=== PATIENT | male | born 2005 | race Caucasian/White ===

== ENCOUNTER 2024-10-05 22:19 | Emergency (ER) | payer OTHER ==
[2024-10-05 22:29] VITALS: BP 115/67; PULSE 81; RESP 17; TEMP 98.3; BMI 27.1
[2024-10-06] MEDS ORDERED: DIPHTH,PERTUSS(ACELL),TET 0.5 ML DISP.SYRIN IM ONE (00:01)
[2024-10-06] MEDS ORDERED: BACITRACIN ZINC 15 GM TUBE TOPICAL OINTMENT ONE (00:02)
[2024-10-06] MEDS: DIPHTH,PERTUSS(ACELL),TET 0.5 ML DISP.SYRIN IM ONE (00:04)
[2024-10-06] MEDS: BACITRACIN 0.9 GM PACKET TP ONE (00:05)
== END 2024-10-06 00:05 | disposition home or self-care (01) ==
LOC: JER 22:19
PROC: 0HQKXZZ Repair Right Lower Leg Skin, External Approach (ICD-10-PCS; principal; 2024-10-05)
PROC: 3E0234Z Introduction of Serum, Toxoid and Vaccine into Muscle, Percutaneous Approach (ICD-10-PCS; 2024-10-05)
DX: S81.012A Laceration without foreign body, left knee, initial encounter (principal); Z23 Encounter for immunization; W29.3XXA Contact with powered garden and outdoor hand tools and machinery, initial encounter; Y99.0 Civilian activity done for income or pay
CPT/HCPCS: 12001-25; 90471; 90715; 99284-25